=== PATIENT | female | born 1970 | race American Indian/Alaskan Native ===

== ENCOUNTER 2020-10-12 06:39 | Emergency (ER) | payer BC ==
[2020-10-12 07:24] VITALS: BP 146/95
[2020-10-12] MEDS ORDERED: KETOROLAC 60 MG/2 ML INJ IM ONE (09:30)
--- NOTE | 2020-10-12 09:31 | Emergency Department Report ---
ED Back Pain/Injury HPI - General Chief Complaint: Back Pain/Injury Stated Complaint: LOWER BACK PAIN Time Seen by Provider: 10/12/20 09:24 Source: patient Limitations: No Limitations - History of Present Illness Initial Comments: Patient is a thin 49-year-old -[place] female who comes to the ER complaining of lower right back pain radiating to her right leg since Friday. This is after she was exercising on Friday and she said that her low back started to hurt so she stopped exercising. Patient has been using warm compresses and NSAIDs with no relief. Patient states that she is stiff when she wakes up. She has tried to stretch through it but is continuing to have this right low back pain radiating to the leg. She has not had anything like this before. Patient has no peripheral edema. Her pulses are intact. She is ambulatory. Vital signs are normal with no tachycardia or hypoxia. Patient denies chest pain or shortness of breath. MD Complaint: back pain -: Sudden, days(s) Similar Symptoms Previously: No Radiation: right leg Severity: severe Quality: burning Consistency: constant Improves With: none Worsens With: none Context: other (exercise) Associated Symptoms: denies other symptoms Treatments Prior to Arrival: NSAIDS - Related Data Previous Rx's Medication Instructions Recorded Last Taken Type Cyclobenzaprine [Flexeril] 10 mg PO TID PRN #10 tablet 10/12/20 Unknown Rx Ibuprofen [Motrin] 800 mg PO Q8HR PRN #30 tablet 10/12/20 Unknown Rx predniSONE [Deltasone] 20 mg PO DAILY #5 tablet 10/12/20 Unknown Rx Allergies Allergy/AdvReac Type Severity Reaction Status Date / Time dye Allergy Nausea Uncoded 10/12/20 07:21 ED Review of Systems ROS: Stated complaint: LOWER BACK PAIN Other details as noted in HPI Comment: All other systems reviewed and negative ED Past Medical Hx - Past Medical History Hx Hypertension: Yes Additional medical history: DVT - Surgical History Past Surgical History?: Yes Additional Surgical History: STOMACH REMOVED - Family History Family history: no significant - Social History Smoking Status: Never Smoker Substance Use Type: None - Medications Home Medications: Home Medications Medication Instructions Recorded Confirmed Last Taken Type Cyclobenzaprine [Flexeril] 10 mg PO TID PRN #10 tablet 10/12/20 Unknown Rx Ibuprofen [Motrin] 800 mg PO Q8HR PRN #30 tablet 10/12/20 Unknown Rx predniSONE [Deltasone] 20 mg PO DAILY #5 tablet 10/12/20 Unknown Rx ED Physical Exam - General Limitations: No Limitations General appearance: alert, in no apparent distress - Head Head exam: Present: atraumatic, normocephalic - Eye Eye exam: Present: normal appearance - ENT ENT exam: Present: mucous membranes moist - Neck Neck exam: Present: normal inspection - Respiratory Respiratory exam: Present: normal lung sounds bilaterally. Absent: respiratory distress - Cardiovascular Cardiovascular Exam: Present: regular rate, normal rhythm. Absent: systolic murmur, diastolic murmur, rubs, gallop - GI/Abdominal GI/Abdominal exam: Present: soft, normal bowel sounds - Extremities Exam Extremities exam: Present: normal inspection - Expanded Lower Extremity Exam Right Hip exam: Present: normal inspection Upper Leg exam: Present: normal inspection Knee exam: Present: normal inspection Lower Leg exam: Present: normal inspection Neuro vascular tendon exam: Present: no vascular compromise Gait: Positive: observed and normal - Back Exam Back exam: Present: normal inspection - Neurological Exam Neurological exam: Present: alert, oriented X3 - Psychiatric Psychiatric exam: Present: normal affect, normal mood - Skin Skin exam: Present: warm, dry, intact, normal color. Absent: rash ED Course Vital Signs 10/12/20 07:23 Temperature 98.7 F Pulse Rate 81 Respiratory 18 Rate Blood Pressure 146/95 [Right] O2 Sat by Pulse 99 Oximetry - Reevaluation(s) Reevaluation #1: 10/12/20 09:34 pos rle straight leg raise no cva tenderness no spine tenderness ED Medical Decision Making - Medical Decision Making medicated for pain educated on sciatica dc home with dc poc including meds, diet, activity and follow up- verbalizes understanding Vital Signs 10/12/20 07:23 Temperature 98.7 F Pulse Rate 81 Respiratory 18 Rate Blood Pressure 146/95 [Right] O2 Sat by Pulse 99 Oximetry - Differential Diagnosis sciatica v kidney related back pain Critical care attestation.: If time is entered above; I have spent that time in minutes in the direct care of this critically ill patient, excluding procedure time. ED Disposition Clinical Impression: Sciatica, Lumbar strain Disposition: DC-01 TO HOME OR SELFCARE Is pt being admited?: No Does the pt Need Aspirin: No Condition: Stable Instructions: Muscle Strain, [id number], Sciatica Additional Instructions: Warm compresses Diet and activity as tolerated Meds as ordered Follow-up with primary care if pain persist for sometimes patients require physical therapy to alleviate the nerve pain Referrals: MIMI GARAY MD [Staff Physician] - 3-5 Days Forms: Work/School Release Form(ED) Time of Disposition: 09:35
[2020-10-12] MEDS ORDERED: predniSONE 20 MG TAB PO NR (10:00)
== END 2020-10-12 10:17 | disposition home or self-care (01) ==
LOC: ED 06:39
DX: S39.012A Strain of muscle, fascia and tendon of lower back, initial encounter (principal); I10 Essential (primary) hypertension; Z79.899 Other long term (current) drug therapy; Z91.041 Radiographic dye allergy status; X58.XXXA Exposure to other specified factors, initial encounter; Y93.B9 Activity, other involving muscle strengthening exercises; Y92.89 Other specified places as the place of occurrence of the external cause; Y99.8 Other external cause status
CPT/HCPCS: 96372; 99282; J1885; J7512